=== PATIENT | female | born 1970 | race African-American/Black ===

== ENCOUNTER 2025-01-01 11:56 | Emergency (ER) | payer OTHER ==
[~2025-01-01] VITALS: Ht 165.1 cm; Wt 68.2 kg
[2025-01-01 12:14] VITALS: TEMP 98
[2025-01-01] MEDS ORDERED: NYST30CR9 TP (12:39)
[2025-01-01] MEDS: METOPROLOL SUCCINATE 25 MG ER TABLET PO ONE (13:09)
[2025-01-01 13:44] VITALS: BP 178/92; PULSE 82; RESP 18; O2SAT 99
== END 2025-01-01 14:02 | disposition home or self-care (01) ==
LOC: EMS 13:14
DX: L30.4 Erythema intertrigo (principal); I10 Essential (primary) hypertension; M81.0 Age-related osteoporosis without current pathological fracture; Z79.899 Other long term (current) drug therapy
CPT/HCPCS: 99283

== ENCOUNTER 2025-03-21 17:09 | Inpatient (IN) | payer OTHER ==
[~2025-03-21] VITALS: Ht 170.2 cm; Wt 82.5 kg
[~2025-03-21 17:09] MED LIST: BENZ-227 PO; DOXY-354 PO; GRIS500T6 PO; HYDR25TA2 PO; LUPR3.75 IM; METO25XL PO; METO50 PO; NYST30CR9 TP; PERCT PO
[2025-03-21] MEDS ORDERED: METO-391 PO (17:27)
[2025-03-21 17:42] LABS: PLATELET COUNT (AUTO) 211 K/uL (150-450); RED BLOOD CELL COUNT(AUTO) 4.42 MIL/uL (4.00-5.20); RED CELL DISTRIBUTION WIDTH 15.2 % (11.5-14.5); WHITE BLOOD COUNT (AUTO) 4.7 K/uL (4.5-11.0)
[2025-03-21] MEDS ORDERED: IOHEXOL 350 MG/ML 100 ML VIAL ONE (17:43)
[2025-03-21] MEDS ORDERED: SODIUM CHLORIDE 0.9% 100 ML ONE (17:43)
[2025-03-21] MEDS ORDERED: 0.9% SODIUM CHLORIDE 10 ML SYRINGE IVP ONE (17:43)
[2025-03-21 17:49] LABS: CALCIUM, TOTAL 9.0 mg/dL (8.8-10.5); CREATININE 0.87 mg/dL (0.60-1.30); GLOMERULAR FILTR. RATE CALC > 60 mL/min (>60); GLUCOSE,RANDOM 91 mg/dL (70-110); SODIUM SERUM 144 mmol/L (136-145); UREA NITROGEN, BLOOD 12 mg/dL (7-18)
[2025-03-21 17:53] LABS: ASPARTATE AMINOTRANSFERASE 25 U/L (15-37); CHOL/HDL RATIO 2.5 (3.9-5.7); LDL CHOL (CALC.) 96 mg/dL (0-130); TOTAL PROTEIN, SERUM 7.7 g/dL (6.4-8.2)
[2025-03-21 18:00] LABS: TROPONIN I-HIGH SENSITIVITY 137 ng/L (<51)
[2025-03-21 18:15] LABS: GLUCOMETER DEV NAME(LOC) ER.7; GLUCOSE,POINT OF CARE 77 MG/DL (70-110)
[2025-03-21] MEDS ORDERED: ONDANSETRON HCL 4 MG/2 ML VIAL IVP PRN (19:15)
[2025-03-21] MEDS ORDERED: MAGNESIUM HYDROXIDE SUSPENSION 30 ML UDCUP PO PRN (19:15)
[2025-03-21] MEDS ORDERED: ACETAMINOPHEN 325 MG TABLET PO PRN (19:15)
[2025-03-21 19:29] LABS: APPEARANCE,URINE CLEAR (CLEAR); GLUCOSE, URINE (UA) NEGATIVE (NEGATIVE); LEUKOCYTE ESTERASE ,URINE NEGATIVE (NEGATIVE); NITRATE,URINE NEGATIVE (NEGATIVE); OCCULT BLOOD,URINE SMALL (NEGATIVE); PH,URINE DRUG SCREEN 7.0 (5.0-8.0); SPECIFIC GRAVITIY, URINE 1.040 (1.003-1.030)
[2025-03-21] MEDS ORDERED: POTASSIUM CHL 10 MEQ/WATER 50 ML IV PRN (19:30)
[2025-03-21 19:36] LABS: ALCOHOL, URINE DRUG SCREEN NEGATIVE (NEGATIVE); AMPHET/METH SCREEN,URINE NEGATIVE (NEGATIVE); BARBITURATE SCREEN, URINE NEGATIVE (NEGATIVE); CANNABINOID SCREEN,URINE NEGATIVE (NEGATIVE); COCAINE SCREEN,URINE POSITIVE (NEGATIVE); METHADONE SCREEN, URINE NEGATIVE (NEGATIVE)
[2025-03-21] MEDS: ASPIRIN 325 MG TABLET PO ONE (19:48)
[2025-03-21] MEDS: SODIUM CHLORIDE 0.9% 1,000 ML IV ONE (19:48)
[2025-03-21] MEDS: ATORVASTATIN CALCIUM 40 MG TABLET PO SCH (19:48)
[2025-03-21 19:53] LABS: SQUAMOUS EPITHELIAL CELL,UR Rare /LPF (None Seen)
[2025-03-21] MEDS: POTASSIUM CHLORIDE 20 MEQ ER TABLET PO PRN (20:46)
[2025-03-21] MEDS: DOCUSATE SODIUM 100 MG CAPSULE PO SCH (21:00)
[2025-03-21 21:02] VITALS: BP 146/83; PULSE 62; RESP 20; TEMP 98.5; O2SAT 97
[2025-03-21 21:09] LABS: TROPONIN I-HIGH SENSITIVITY 121 ng/L (<51)
[2025-03-21] MEDS: CHLORHEXIDINE GLUCONATE 2% TOWELETTE [2'S/6'S] TP SCH (22:18)
[2025-03-21 23:55] LABS: TROPONIN I-HIGH SENSITIVITY 140 ng/L (<51)
[2025-03-22] VITALS: BP 138/97; PULSE 67; RESP 11; TEMP 98.5; O2SAT 98
[2025-03-22] MEDS: HEPARIN SODIUM,PORCINE 5,000 UNITS/ML VIAL SQ SCH (00:38)
[2025-03-22 04:00] VITALS: BP 132/67; PULSE 55; RESP 16; TEMP 98.5; O2SAT 100
[2025-03-22 05:35] LABS: TROPONIN I-HIGH SENSITIVITY 147 ng/L (<51)
[2025-03-22 08:00] VITALS: BP 150/72; PULSE 63; RESP 13; TEMP 98.4; O2SAT 98
[2025-03-22 08:20] LABS: CALCIUM, TOTAL 9.2 mg/dL (8.8-10.5); CREATININE 0.73 mg/dL (0.60-1.30); GLOMERULAR FILTR. RATE CALC > 60 mL/min (>60); GLUCOSE,RANDOM 87 mg/dL (70-110); SODIUM SERUM 142 mmol/L (136-145); UREA NITROGEN, BLOOD 8 mg/dL (7-18)
[2025-03-22] MEDS: ASPIRIN 81 MG CHEWABLE TABLET PO SCH (08:46)
[2025-03-22] MEDS: FAMOTIDINE 20 MG TABLET PO SCH (08:47)
[2025-03-22] MEDS: LOSARTAN POTASSIUM 50 MG TABLET PO SCH (09:32)
[2025-03-22 12:00] VITALS: BP 115/76; PULSE 99; RESP 13; TEMP 98.2; O2SAT 96
[2025-03-22 12:00] LABS: TROPONIN I-HIGH SENSITIVITY 153 ng/L (<51)
[2025-03-22] MEDS ORDERED: METO-325 PO (12:56)
[2025-03-22 16:00] VITALS: BP 134/64; PULSE 78; PULSE 95; RESP 17; TEMP 98.2; O2SAT 95
[2025-03-22 20:00] VITALS: BP 144/53; PULSE 80; RESP 20; TEMP 98.5; O2SAT 96
[2025-03-23] VITALS (8 sets, daily range): BP systolic 121–163; BP diastolic 53–79; PULSE 65–77; RESP 17–22; TEMP 98.2–98.8; O2SAT 93–100
[2025-03-23 05:11] LABS: CALCIUM, TOTAL 8.8 mg/dL (8.8-10.5); CREATININE 0.67 mg/dL (0.60-1.30); GLOMERULAR FILTR. RATE CALC > 60 mL/min (>60); GLUCOSE,RANDOM 103 mg/dL (70-110); SODIUM SERUM 141 mmol/L (136-145); UREA NITROGEN, BLOOD 10 mg/dL (7-18)
[2025-03-23] MEDS: LABETALOL HCL 100 MG TABLET PO SCH (08:29)
[2025-03-23] MEDS: LOSARTAN POTASSIUM 50 MG TABLET PO SCH (08:30)
[2025-03-24 04:24] VITALS: BP 134/74; PULSE 59; RESP 18; TEMP 98.2; O2SAT 100
[2025-03-24 06:02] LABS: PLATELET COUNT (AUTO) 213 K/uL (150-450); RED BLOOD CELL COUNT(AUTO) 4.22 MIL/uL (4.00-5.20); RED CELL DISTRIBUTION WIDTH 14.9 % (11.5-14.5); WHITE BLOOD COUNT (AUTO) 4.7 K/uL (4.5-11.0)
[2025-03-24 06:21] LABS: CALCIUM, TOTAL 9.3 mg/dL (8.8-10.5); CREATININE 0.92 mg/dL (0.60-1.30); GLOMERULAR FILTR. RATE CALC > 60 mL/min (>60); GLUCOSE,RANDOM 94 mg/dL (70-110); SODIUM SERUM 141 mmol/L (136-145); UREA NITROGEN, BLOOD 16 mg/dL (7-18)
[2025-03-24 06:22] LABS: CHOL/HDL RATIO 2.0 (3.9-5.7); LDL CHOL (CALC.) 65.0 mg/dL (0-130)
[2025-03-24 08:17] VITALS: BP 159/72; PULSE 52; RESP 19; TEMP 97.7; O2SAT 99
[2025-03-24] MEDS: CLOPIDOGREL BISULFATE 75 MG TABLET PO SCH (08:24)
[2025-03-24 11:33] VITALS: BP 150/60; PULSE 52; RESP 18; TEMP 98; O2SAT 99
[2025-03-24] MEDS: LORazepam 2 MG/ML VIAL IVP ONE (13:53)
[2025-03-24 15:27] VITALS: BP 176/73; PULSE 62; RESP 18; TEMP 98.1; O2SAT 99
[2025-03-24 16:35] VITALS: BP 158/85; PULSE 65; RESP 18; TEMP 98; O2SAT 98
[2025-03-24 19:38] VITALS: BP 152/60; PULSE 66; RESP 18; TEMP 98.2; O2SAT 97
[2025-03-24] MEDS: LABETALOL HCL 200 MG TABLET PO SCH (20:37)
[2025-03-25 00:22] VITALS: BP 137/70; PULSE 56; RESP 17; TEMP 98.4; O2SAT 95
[2025-03-25 04:51] VITALS: BP 120/84; PULSE 56; RESP 18; TEMP 98.4; O2SAT 100
[2025-03-25 06:09] LABS: PLATELET COUNT (AUTO) 200 K/uL (150-450); RED BLOOD CELL COUNT(AUTO) 4.33 MIL/uL (4.00-5.20); RED CELL DISTRIBUTION WIDTH 14.9 % (11.5-14.5); WHITE BLOOD COUNT (AUTO) 4.8 K/uL (4.5-11.0)
[2025-03-25 06:20] LABS: CALCIUM, TOTAL 9.4 mg/dL (8.8-10.5); CREATININE 0.80 mg/dL (0.60-1.30); GLOMERULAR FILTR. RATE CALC > 60 mL/min (>60); GLUCOSE,RANDOM 94 mg/dL (70-110); SODIUM SERUM 141 mmol/L (136-145); UREA NITROGEN, BLOOD 22 mg/dL (7-18)
[2025-03-25 08:00] VITALS: BP 155/75; PULSE 62; RESP 18; TEMP 98; O2SAT 98
[2025-03-25 12:00] VITALS: BP 144/68; PULSE 54; RESP 18; TEMP 98.5; O2SAT 99
[2025-03-25] MEDS ORDERED: LOSA-382 PO (14:49)
[2025-03-25] MEDS ORDERED: CLOP75TA83 PO (14:49)
[2025-03-25] MEDS ORDERED: ASPI-1450 PO (14:49)
[2025-03-25] MEDS ORDERED: HYDR50TA36 PO (14:49)
[2025-03-25] MEDS ORDERED: LABE200T56 PO (14:49)
[2025-03-25] MEDS ORDERED: ATOR40TA71 PO (14:49)
== END 2025-03-25 15:55 | disposition home or self-care (01) | DRG 45 ==
LOC: EMS 17:09 → EDH 19:08 → ICU 21:02 → 5S 03-23 16:36
PROVIDERS: ADMIT Internal Medicine; ATTEND Internal Medicine
DX: I63.81 Other cerebral infarction due to occlusion or stenosis of small artery (principal); E44.0 Moderate protein-calorie malnutrition; I16.1 Hypertensive emergency; I24.89 Other forms of acute ischemic heart disease; I10 Essential (primary) hypertension; R20.0 Anesthesia of skin; M81.0 Age-related osteoporosis without current pathological fracture; F17.210 Nicotine dependence, cigarettes, uncomplicated; R53.1 Weakness; F14.10 Cocaine abuse, uncomplicated; Z79.82 Long term (current) use of aspirin; Z68.28 Body mass index [BMI] 28.0-28.9, adult
CPT/HCPCS: 70496; 70498; 70551; 71045; 80048; 80053; 80061; 80307; 81001; 82948; 82962; 83036; 84132; 84443; 84484; 85025; 85610; 85730; 86850; 86900; 86901; 87081; 92526; 92610; 93005; 93306; 97116; 97162; 97166; 97530; 97535; 99285; G0378; J0360; J1644; J2060; J3490; J7030; J7050; 36415-L1; 36415-TC; 70450; 70450-TC